=== PATIENT | female | born 2000 | race Hispanic/Latino ===

== ENCOUNTER 2019-01-10 14:45 | Emergency (ER) | payer OTHER ==
[~2019-01-10] VITALS: Ht 165.1 cm; Wt 69.9 kg
--- NOTE | 2019-01-10 16:40 | Diagnostic Imaging Report ---
EXAMINATION: HAND 3+ VIEWS RIGHT INDICATION: Thumb pain COMPARISON: None FINDINGS: No acute fracture or dislocation. Alignment is anatomic. The soft tissues appear unremarkable. IMPRESSION: No acute osseous injury. Signed by: Gregor Stauffer MD on 01/10/2019 4:37 PM
[2019-01-10 17:34] VITALS: BP 128/74
== END 2019-01-10 17:35 | disposition home or self-care (01) ==
LOC: ER 14:45
DX: S63.621A Sprain of interphalangeal joint of right thumb, initial encounter (principal); W23.1XXA Caught, crushed, jammed, or pinched between stationary objects, initial encounter
CPT/HCPCS: 99282

== ENCOUNTER 2022-09-18 17:52 | Emergency (ER) | payer OTHER ==
[~2022-09-18] VITALS: Ht 162.6 cm; Wt 81.6 kg
[2022-09-18] MEDS ORDERED: HYDROCODONE/APAP 5MG-325MG TAB PO ONE (18:15)
[2022-09-18] MEDS ORDERED: IBUPROFEN600 MG PO (19:10)
[2022-09-18] MEDS ORDERED: ACETAMINOPHEN-1 EAC4 PO (19:10)
[2022-09-18 19:19] VITALS: O2SAT 97
== END 2022-09-18 19:30 | disposition home or self-care (01) ==
LOC: ER 17:57
DX: S82.61XA Displaced fracture of lateral malleolus of right fibula, initial encounter for closed fracture (principal); X50.1XXA Overexertion from prolonged static or awkward postures, initial encounter; Y92.89 Other specified places as the place of occurrence of the external cause
CPT/HCPCS: 99284

== ENCOUNTER 2022-09-25 21:34 | Emergency (ER) | payer OTHER ==
[~2022-09-25] VITALS: Ht 162.6 cm; Wt 81.6 kg
[~2022-09-25 21:34] MED LIST: ACETAMINOPHEN-1 EAC4 PO; IBUPROFEN600 MG PO
[2022-09-25 22:12] VITALS: O2SAT 100
== END 2022-09-25 22:25 | disposition home or self-care (01) ==
LOC: ER 21:40
DX: T14.90XD Injury, unspecified, subsequent encounter (principal); X58.XXXD Exposure to other specified factors, subsequent encounter
CPT/HCPCS: 99283